=== PATIENT | male | born 1990 | race Caucasian/White ===

== ENCOUNTER 2016-12-27 22:50 | Emergency (ER) | payer OTHER ==
[~2016-12-27] VITALS: Ht 180.3 cm; Wt 76.2 kg
[2016-12-27] MEDS ORDERED: ONDANSETRON HCL/PF 4 MG/2 ML VIAL ONE (23:29)
[2016-12-27] MEDS ORDERED: IV SET PRIMARY 1 EA INFUS.SET MC ONE (23:29)
[2016-12-27] MEDS ORDERED: IV NS 0.9% 1,000 ML ONE (23:29)
[2016-12-27] MEDS ORDERED: ACETAMINOPHEN ES 500 MG TABLET ONE (23:29)
[2016-12-27] MEDS ORDERED: ONDANSETRON HCL/PF 4 MG/2 ML VIAL IVP ONE (23:30)
[2016-12-27] MEDS ORDERED: ACETAMINOPHEN ES 500 MG TABLET PO ONE (23:30)
[2016-12-27] MEDS ORDERED: IV NS 0.9% 1,000 ML BAG IV ONE (23:30)
[2016-12-27 23:36] LABS: KETONES,URINE NEGATIVE (NEGATIVE); LEUKOCYTE ESTERASE ,URINE NEGATIVE (NEGATIVE); PH,URINE 6.5 (5.0-8.0)
[2016-12-27 23:56] LABS: ADD UA MICROSCOPIC YES
[2016-12-27 23:59] LABS: RBC,URINE 0-2 /HPF (0-2)
[2016-12-28] LABS: ADD URINE CULTURE NO
[2016-12-28 00:14] LABS: CREATININE 1.2 mg/dL (0.6-1.3); POTASSIUM 3.5 mmol/L (3.5-5.1)
[2016-12-28 00:17] LABS: DIFF TOTAL % 100 %; HEMATOCRIT 43 % (39-51); HEMOGLOBIN 14.6 g/dL (13.5-17.5); LYMPHOCYTES # (AUTO) 0.9 /CMM (0.8-4.8); LYMPHOCYTES % (AUTO) 5.8 % (20.0-44.0); MEAN CORPUSCULAR HEMOGLOBIN 31 PG (26.0-33.0); MEAN CORPUSCULAR HGB CONC 34 g/dl (31.0-36.0); MEAN CORPUSCULAR VOLUME 90 fL (80-96); MONOCYTES # (AUTO) 0.8 /CMM (0.1-1.30); NEUTROPHILS # (AUTO) 14.4 /CMM (1.8-8.9); NEUTROPHILS % (AUTO) 89.2 % (43.0-81.0); PLATELET COUNT (AUTO) 198 /CMM (150-450); RED BLOOD CELL COUNT(AUTO) 4.76 MIL/uL (4.5-6.0); WHITE BLOOD COUNT (AUTO) 16.1 K/uL (4.3-11.0)
[2016-12-28] MEDS ORDERED: PROCHLORPERAZINE EDISYLATE 10 MG/2 ML VIAL ONE (00:23)
[2016-12-28] MEDS ORDERED: IV SET PRIMARY 1 EA INFUS.SET MC ONE (00:23)
[2016-12-28] MEDS ORDERED: IV NS 0.9% 250 ML IV ONE (00:23)
[2016-12-28 00:28] LABS: ALBUMIN 3.9 g/dL (3.4-5.0); BILIRUBIN,DIRECT 0.1 mg/dL (0.0-0.2); BILIRUBIN,TOTAL 0.6 mg/dL (0.2-1.0); INDIRECT BILIRUBIN 0.5 mg/dL (0.0-1.1); TOTAL PROTEIN, SERUM 7.6 g/dL (6.4-8.2)
[2016-12-28] MEDS ORDERED: PROCHLORPERAZINE EDISYLATE 10 MG/2 ML VIAL IV ONE (00:30)
[2016-12-28] MEDS ORDERED: IV NS 0.9% 250 ML BAG IV ONE (00:30)
[2016-12-28 01:17] VITALS: BP 138/82
== END 2016-12-28 01:05 | disposition home or self-care (01) ==
LOC: ER 22:53
DX: R11.2 Nausea with vomiting, unspecified (principal); R51 Headache; I10 Essential (primary) hypertension
CPT/HCPCS: 36415; 80048; 80076; 81001; 83690; 85025; 96361; 96374; 96375; 99284; A4606; J0780; J2405; J7030; J7050; Z7610; 81000-TC